=== PATIENT | male | born 1990 | race Caucasian/White ===

== ENCOUNTER → 2017-07-16 | Outpatient (CLI) | payer MEDICAID, OTHER | LOC: BMCIMAGING 13:53 | PROVIDERS: ATTEND Family Medicine | DX: S52.041A Displaced fracture of coronoid process of right ulna, initial encounter for closed fracture (principal); V00.321A Fall from snow-skis, initial encounter ==

== ENCOUNTER 2017-07-24 12:36 | Observation (INO) | payer MEDICAID ==
[2017-07-24] MEDS ORDERED: LIDOCAINE 1% 2 ML INJ ID PRN (13:01)
[2017-07-24] MEDS ORDERED: LR 1,000 ML IV ONE (13:01)
[2017-07-24] MEDS ORDERED: BUPIVACAINE 0.5% 30 ML SDV ONE (13:53)
[2017-07-24] MEDS ORDERED: ceFAZolin 2 GM/DEXTROSE 100 ML IV ONE (15:54)
--- NOTE | 2017-07-24 16:00 | PDANEPAE ---
ANE History of Present Illness 27 yo M w traumatic R UE fracture, here for ORIF ANE Past Medical History - Cardiovascular History Hx Hypertension: No Hx Arrhythmias: No Hx Chest Pain: No Hx Coronary Artery / Peripheral Vascular Disease: No Hx CHF / Valvular Disease: No Hx Palpitations: No - Pulmonary History Hx COPD: No Hx Asthma/Reactive Airway Disease: No Hx Recent Upper Respiratory Infection: No Hx Oxygen in Use at Home: No Hx Sleep Apnea: No Sleep Apnea Screening Result - Last Documented: Negative - Neurologic History Hx Cerebrovascular Accident: No Hx Seizures: No Hx Dementia: No - Endocrine History Hx Diabetes: No - Renal History Hx Renal Disorders: No - Liver History Hx Hepatic Disorders: No - Neurological & Psychiatric Hx Hx Neurological and Psychiatric Disorders: No - Cancer History Hx Cancer: No - Congenital Disorder History Hx Congenital Disorders: No - GI History Hx Gastrointestinal Disorders: No - Other Health History Other Health History: NEG - Chronic Pain History Chronic Pain: No - Surgical History Prior Surgeries: NONE ANE Review of Systems Review of Systems: - Exercise capacity Exercise capacity: >=4 METS METS (RN): 5 METS ANE Patient History - Allergies Allergies/Adverse Reactions: promethazine [From Phenergan] Allergy (Verified 07/24/17 13:15) Other-Enter Comments - Home Medications Home Medications: Misti Allergy 07/23/17 [Last Taken 07/22/17] HYDROcodone BITARTRATE 07/23/17 [Last Taken 07/23/17] - NPO status NPO Since - Liquids (Date): 07/24/17 NPO Since - Liquids (Time): 10:45 NPO Since - Solids (Date): 07/23/17 NPO Since - Solids (Time): 19:00 - Anes Hx Anes Hx: no prior problems - Smoking Hx Smoking Status: Never smoked - Alcohol Use Alcohol Use: Rarely - Family Anes Hx Family Anes Hx: none Family Hx Anesthesia Complications: NONE ANE Labs/Vital Signs - Vital Signs Blood Pressure: 133/93 Heart Rate: 70 Respiratory Rate: 16 O2 Sat (%): 97 Height: 182.88 cm Weight: 90.718 kg ANE Physical Exam - Airway Neck exam: FROM Mallampati Score: Class 2 Mouth exam: normal dental/mouth exam - Pulmonary Pulmonary: no respiratory distress, clear to auscultation - Cardiovascular Cardiovascular: regular rate and rhythym, no murmur, rub, or gallop - ASA Status ASA Status: II ANE Anesthesia Plan Anesthesia Plan: GA w LMA Regional Anesthesia: supraclavicular BP NB
[2017-07-24] MEDS ORDERED: MIDAZOLAM 2 MG/2 ML VIAL IVP ONE (16:03)
[2017-07-24] MEDS ORDERED: PROPOFOL 200 MG/20 ML VIAL ONE (16:13)
[2017-07-24] MEDS ORDERED: fentaNYL 100 MCG/2 ML INJ ONE (16:13)
[2017-07-24] MEDS ORDERED: LIDOCAINE 2% 100 MG/5 ML SYR ONE (16:14)
[2017-07-24] MEDS ORDERED: ceFAZolin 2 GM/SWFI 2 GM/20 ML SYR IVP ONE (16:30)
[2017-07-24] MEDS ORDERED: HYDROmorphONE/DILAUDID 2 MG/ML INJ ONE ×2 (17:14→20:35)
[2017-07-24] MEDS ORDERED: DEXAMETHASONE 4 MG/ML VIAL ONE (17:16)
[2017-07-24] MEDS ORDERED: ONDANSETRON 4 MG/2 ML VIAL ONE (17:17)
[2017-07-24] MEDS ORDERED: ROPIVACAINE HCL 150 MG/30 ML INJ ONE (17:53)
[2017-07-24] MEDS ORDERED: clonIDINE 1 MG/10 ML VIAL EP ONE (17:53)
[2017-07-24] MEDS ORDERED: ceFAZolin 1 GM VIAL ONE ×2 (20:17→23:59)
[2017-07-25] MEDS ORDERED: ONDANSETRON 4 MG/2 ML VIAL ONE (00:45)
[2017-07-25] MEDS ORDERED: ONDANSETRON DISINTEGRATING 4 MG TAB PO PRN (00:46)
[2017-07-25] MEDS ORDERED: ONDANSETRON 4 MG/2 ML VIAL IVP PRN ×2 (00:46)
[2017-07-25] MEDS ORDERED: DEXAMETHASONE 4 MG/ML VIAL IVP PRN (00:46)
[2017-07-25] MEDS ORDERED: HYDROmorphONE/DILAUDID 1 MG/ML INJ IVP PRN (00:46)
[2017-07-25] MEDS ORDERED: NALOXONE HCL 0.4 MG/ML INJ IVP PRN (00:46)
[2017-07-25] MEDS ORDERED: fentaNYL 100 MCG/2 ML INJ IVP PRN (00:46)
--- NOTE | 2017-07-25 00:49 | POSTANESTH ---
Post Anesthetic Evaluation Cardiovascular Status: Normal, Stable, Similar to Pre-Op Cond Respiratory Status: Normal, Stable, Similar to Pre-op Cond. Level of Consciousness/Mental Status: Can Participate in Eval, Alert and Oriented Pain Control: Adequate, Prn Tx Ordered (R BP NB (supraclav) performed in PACU, pt pain brought under control quickly.) Nausea/Vomiting Control: Adequate, Prn Tx Ordered Complications Possibly Related to Anesthesia: None Noted
[2017-07-25] MEDS: OXYCODONE/APAP 5/325 TAB PO PRN ×3 (03:51→07:32)
[2017-07-25] MEDS: HYDROmorphONE/DILAUDID 1 MG/ML INJ IVP PRN ×8 (03:52→21:09)
[2017-07-25] MEDS ORDERED: HYDROCODONE/APAP 5/325 TAB PO PRN (07:41)
[2017-07-25] MEDS ORDERED: KETOROLAC 15 MG/1 ML SDV ONE (07:41)
[2017-07-25] MEDS ORDERED: KETOROLAC 15 MG/1 ML SDV IVP ONE ×3 (07:45→12:00)
[2017-07-25] MEDS ORDERED: KETOROLAC 30 MG/1 ML SDV IVP PRN (11:38)
[2017-07-25] MEDS: HYDROCODONE/APAP 5/325 TAB PO PRN ×3 (12:05→21:09)
--- NOTE | 2017-07-25 12:09 | SOAPPROG ---
SOAP Progress Note Assessment/Plan: Assessment: Plan: Subjective: POD #1 s/p R elbow coronoid ORIF, LCL repair, placement of external fixator S: Pain was controlled until recently when block wore off. Has not responded to another dose of IV toradol and IV dilaudid O: Vitals stable R arm -dressing in place, no serosanguinous breakthrough -all fingers numb. Able to extend and flex thumb and digits, unable to abduct -hand, forearm and upper arm soft -2+ radial p. A/P: We had a long discussion about his surgery. His coronoid was essentially destroyed by the trauma, which necessitated the ex-fix to maintain a stable elbow. His prognosis is guarded due to the possibility of post-traumatic arthritis. Will reassess nerve recovery after block wears off. -Will increase IV toradol to 30 mg Q6 -Increasing PO norco to 2 tabs Q4hr -Increasing dilaudid to 0.8mg Q2hr IV -Will reassess the patient in the evening Objective: Vital Signs Temp Pulse Resp BP Pulse Ox 36.8 C 89 17 127/64 H 95 07/25/17 05:02 07/25/17 08:16 07/25/17 08:16 07/25/17 08:16 07/25/17 08:16 07/24/17 07/25/17 07/26/17 05:59 05:59 05:59 Intake Total 2100 1000 Balance 2100 1000 - Time Spent With Patient Time Spent With Patient: 30 min ICD10 Worksheet Patient Problems: Problems Problem Status Onset Closed fracture dislocation of elbow Acute - ICD10 Problem Qualifiers (1) Closed fracture dislocation of elbow
[2017-07-25 12:38] VITALS: RESP 16
[2017-07-25] MEDS: KETOROLAC 30 MG/1 ML SDV IVP SCH ×2 (17:58→23:04)
[2017-07-25 23:09] VITALS: TEMP 98.7
[2017-07-26] MEDS: HYDROmorphONE/DILAUDID 1 MG/ML INJ IVP PRN ×2 (00:04→11:56)
[2017-07-26] MEDS: HYDROCODONE/APAP 5/325 TAB PO PRN ×3 (02:02→12:36)
[2017-07-26] MEDS: KETOROLAC 30 MG/1 ML SDV IVP SCH ×2 (05:26→11:41)
[2017-07-26 05:32] LABS: PLATELET COUNT 234 10^3/uL (150-400)
[2017-07-26 07:36] VITALS: BP 127/84; PULSE 77; O2SAT 100
--- NOTE | 2017-07-26 08:54 | GOP ---
[f rep st] OPERATIVE REPORT DATE OF OPERATION: 07/25/2017 SURGEON: Naveed Joseph MD ANESTHESIA: General. PREOPERATIVE DIAGNOSIS: 1. Right elbow fracture dislocation, with type 3, severely comminuted. base of coronoid fracture. 2. Lateral collateral ligament avulsion. POSTOPERATIVE DIAGNOSIS: 1. Right elbow fracture dislocation, with type 3, severely comminuted base of coronoid fracture. 2. Lateral collateral ligament avulsion. PROCEDURE PERFORMED: 1. Right elbow open treatment of fracture dislocation with open reduction, infernal fixation of the coronoid process. 2. Open repair of lateral collateral ligament complex. 3. Anterior transposition of the ulnar nerve. 4. External fixation of the elbow. FINDINGS: ESTIMATED BLOOD LOSS: 100 cc. INDICATIONS: The patient is a 27-year-old male, who presented 1 week ago to Urgent Care after sustaining a fall while skiing locally. An x-ray done in the urgent care, at that time, was reviewed by me, which showed findings very concerning for a coronoid fracture with instability of the elbow. A CT scan was ordered for the subsequent injury. The patient returned to the clinic the following week with the CT scan. We discussed the treatment options for his elbow. On the preoperative examination, prior to my splinting of the elbow when he presented, distal neurovascularly intact. He had marked swelling in the elbow and into the hand, with pain with any movement of the elbow. We discussed the treatment options. I discussed with him the severe nature of his injury. The coronoid process, although 1 of the fragments was large, the coronoid itself was comminuted, so a lot of the bone was in the coronoid, crushed by the injury. There were several pieces including a coronoid tip fragment and a fragment attached to the sublime tubercle with the UCL. Discussed with him the possible complications intrinsic to his injury, which include stiffness, chronic pain, heterotopic ossification, posttraumatic arthritis. We also discussed the risks and benefits of surgery. Risks of surgery including bleeding, infection, damage to surrounding structures including nerves, nerve palsy, postoperative stiffness, heterotopic ossification , post-traumatic arthritis, need for further operations. He understood the risks and wished to proceed. DESCRIPTION OF PROCEDURE: The patient was seen in the preoperative holding area. Again, he and his father were given the opportunity to ask questions. All of their questions were answered. Consent was signed. Surgical site was marked. The patient was taken to the operative suite. Care was taken to transfer him from the [facility] to the operating room table. Care was taken to pad all jigar prominences. A time-out was called including surgical and anesthesia teams, confirming the surgical site and procedure to be performed. Two grams of IV Ancef were given prior to incision. The right upper extremity was prepped and draped in the usual sterile fashion. Tourniquet was placed on the arm and an Esmarch was used to exsanguinate the right upper extremity. We marked out a medial-type approach per the medial aspect of the elbow. This was a floor of the cubital tunnel FCU splitting approach. First, identified the ulnar nerve. Carefully, dissected out the ulnar nerve up to the 2 heads of the FCU. Carefully, we bluntly split the 2 heads of the FCU, identified 1 of the motor branches of the FCU from the median nerve. This was protected at all times. Part of the ulnar nerve was freed up, and a [place] was placed around it to protect it at all times. Subperiosteally, the anterior head of the FCU and then the rest of the flexor pronator mass were elevated off the coronoid fragment carefully and after elevating, we had first identified the fragment attached to the sublime tubercle. This was partially attached to the UCL. There were several fragments that were completely rotated 90 degrees of the bone and only buttressing the coronoid process. It was essentially crushed and there were many comminuted pieces of bone and this, in effect, were the only pieces of subchondral bone without a buttress. The affected site was exposed, irrigated. Bone chips and putty were then placed into the void distal to the coronoid where he had crushed the bone to create a buttress. A Synthes 3.5 small frag plate was bent to use as a buttress-type plate. This was placed over the bone graft to buttress the coronoid fragment in the joint, and 1 screw was then placed into the shaft to hold the plate down to the bone. Another screw was then placed into the sublime tubercle fragment and this had a good bite as well, and then a locking screw was placed to hold the plate. This was through the bone void. Prior to fixation, the fracture was provisionally reduced with K-wires. Again, reduction was tenuous, as these fragments were isolated fragments of subchondral bone and articular cartilage. After buttressing the coronoid, the K-wires were removed. The joint was run through a range of motion, and these small subchondral fragments were not stable and did not maintain reduction with the buttress by nature of their size and comminuted character. The sublime tubercle fragment remained stable. At this point, an attempt was made to place a cannulated 3.5 Synthes screw from posterior to anterior into the fragment. The screw was placed and it provided some buttress support; however, the fragment again remained unstable. To gain a better angle to the coronoid, a flexor pronator split was made, giving a better [id number] angle. A Synthes 2.7 titanium screw was then placed into the fragment from anterior to posterior. This did not have any bite and did not aid in the reduction into the tip. Thus, this screw was removed and abandoned. At this point, it was clear that the intra-articular fragment and to the comminuted nature of the injury, could not stabilize the screws, and a K-wire was placed from anterior to posterior into the tip fragment to stabilize the tip fragment, and then several K-wires were placed from posterior to anterior into the coronoid fragments to provide some buttress support. After this was done, with the loose subchondral pieces removed and took out any loose bodies from the joint, and then some bone putty and DBM matrix were placed into the bone voids to allow for healing. After this was done, the joint was run through a range of motion. The joint did not appear stable. With any varus stress, there was complete gapping of the lateral side of the elbow. Of note, during the procedure, the ulnar nerve was protected with a Chinmay drain during exposure of the fracture. At this point, decision was made to then approach the lateral side. A curved incision over the LCL was made. Upon entering the superficial fascia, there was a complete rent in the intra musculature, and the LCL was visualized and completely pulled off at the epicondyle. There was a bald epicondyle, and this was cleaned up. The LCL and the extensor musculature attached to it were then secured with a #2 FiberWire. Arthrex 3.0 Bio SutureTaks were then placed into the LCL origin and the sutures in the LCL ligament, and then the anchors were then tied to each other. The remaining sutures in the double-loaded anchor were then run from proximal to distal to close the rent in the extensor muscle and to also capture the LCL for reinforcement. Doing so, stabilized the elbow somewhat. In full supination, the elbow was stable through a full range of motion; however, in pronation, the elbow was noted to gap medially, as the elbow was not fully stable after repairing both medial and lateral sides, and the decision was made to place an external fixator. Prior to this, an external fixator of the medial and lateral incisions were closed. In the medial incision, the decision was made to perform an anterior transposition of the ulnar nerve to release tension off it and then move it away from the repair site. The ulnar nerve was carefully dissected out, and then a strip of flexor pronator mass fascia was then elevated , and this was used to perform a subcutaneous transposition. The fascia was then sewn to the subcutaneous tissue. Prior to doing so, the elbow was carefully irrigated. During this case, the antibiotics were re-dosed twice as well as IV Ancef. Next, the medial capsule was closed. The skin was closed in layers with 2-0 Monocryl and then a 3-0 nylon. The lateral side was closed with 2-0 Monocryl and 3-0 nylon. After closing the lateral side, the Synthes large hinged ex-fix was placed in a standard fashion. The first two humerus pins were placed. These were done with generous incisions to prevent any damage to the radial nerve. This was spread down to the bone and the bone was palpated on all sides, and without any other intervening structures. The drill guide was placed down to the bone to protect injuring during drilling, and then the ex-fix pins were placed, 2 in the humerus were done in this fashion and then 2 were placed in the subcutaneous part of the ulna, and 2 bars were then placed onto these 2 pins. A wire was then placed into the center of rotation of the elbow which was confirmed under fluoroscopy. The hinge was constructed over it, and attached this to the 2 humeral and ulnar bars. After this was done , removed the center pin. The elbow was run through a range of motion under live fluoroscopy, and the elbow had full stable range of motion with full flexion and extension in the ex-fix under live fluoroscopy. Although, due to the nature of the injury, decision was made to lock the ex-fix at about slightly less than 90 degrees of flexion to allow for healing of that comminuted coronoid. The bar was placed to lock the fixator, which will be removed at a later date in the office. The pin sites were irrigated and closed with 4-0 nylon. Final x-rays were taken to confirm maintained reduction of the joint. At the end of the case, the hand was very well perfused with a strong radial pulse. A sterile dressing was applied. He was awakened from general anesthesia in stable condition, and then taken to the PACU in stable condition. Decision was made to perform postop block for pain control. After the block, the patient had intact arm extension and flexion, intact finger extension and flexion. He did not, however, have clear abduction and adduction of his fingers. This may possibly be a consequence of the prolonged nature of the case and retraction of the nerve and medial exposure. After block was done, decision was made to admit the patient for pain control and postop monitoring. POSTOPERATIVE CONDITION: Stable. POSTOPERATIVE PLAN: Patient will be admitted for pain control. When his pain is controlled on p.o. pain medications, he will be discharged home. He will follow up in the office early next week for dressing change, and he will receive instructions on pin site care. Decision will be made to remove the ex- fix to allow range of motion with supervised therapy. I discussed with the patient the severe nature of his injury and the high likelihood of post- traumatic arthritis with the severe damage to the articular cartilage and the buttressing bone that occurred during this accident. The patient has a guarded prognosis with this severe elbow injury. /[id number]/MODL MTDD
--- NOTE | 2017-07-26 16:33 | ASDISCHSUM ---
Discharge Information Plan Status:Home with No Needs Medically Cleared to Leave:07/25/2017 Discharge Date:07/26/2017 01:04 PM D/C Disposition: ADT D/C Disposition:Home, Routine, Self-Care Projected Discharge Date:07/26/2017 12:00 AM Transportation at D/C: Discharge Delay Reason: Follow-Up Date:07/26/2017 12:00 AM Discharge Slot: Final Diagnosis: Placement Information Patient Contact Information Contact Name:GINNY Relationship:Father Address: City: [facility] Phone: State/Zip Code: Email: Financial Information Financial Class: Primary Plan Desc:[employer] Primary Plan Number:[id number] Secondary Plan Desc: Secondary Plan Number: Assessment Information Intervention Information
--- NOTE | 2017-07-27 15:04 | GDS ---
[f rep st] DISCHARGE SUMMARY ADMITTING DIAGNOSIS: Status post right elbow coronoid open reduction, internal fixation, open repair of lateral collateral ligament, ulnar nerve transposition , elbow application of uniplanar hinged external fixator. HOSPITAL COURSE: Please see operative dictation for details of the surgery. The patient was admitted postoperatively for pain control. A brachial plexus block was done in preop for pain control. He was admitted and placed on Percocet , IV Dilaudid, and Toradol for pain ctrl. On the morning of July 25, his pain initially had been well controlled but however, when the block began wearing off he again was experiencing pain in the elbow. His IV Toradol was increased to 30 mg q.6. We changed over from Percocet, which was giving him nausea, to [place] 5's, two tabs, and IV Dilaudid for breakthrough. See the progress note for July 25 for details of that visit. On the morning of July 26, I called in to assess his pain control. Per the nursing staff he had been doing better. Later morning when seen, the patient's pain was being controlled with p.o. [place] and IV Toradol. The neurovascular exam for his hand had improved on this day. He had very good wrist and finger extension and EPL was intact, FPL was intact, and finger flexors were intact. He was still experiencing some tingling in all his digits. He was able to abduct and adduct his fingers, indicating early recovery of the ulnar nerve. All his compartments were soft and the hand swelling had been improving. His dressing was changed. Both of the incision sites were clean, dry. The pin sites were clean with the usual serosanguineous pin site drainage. Sterile dressing was applied. He was taught site care. He had 2+ radial pulse. At this point I spoke at length with the patient and his father about the diagnosis of his elbow, the severity of the articular injury. There is a high likelihood of posttraumatic arthritis and elbow dysfunction. On this day, the patient and his father both requested to be discharged home. He was given prescriptions for Toradol and Percocet, instructed to use [id number] antacids for abdominal discomfort. He is to wear his sling for comfort. Encouraged him to move his fingers and slight rotation of his arm. His labs were checked on this day, he had a stable hemoglobin, and was discharged home. He will be seen in the clinic in 3 days. /[id number]/MODL MTDD
== END 2017-07-26 13:04 | disposition home or self-care (01) ==
LOC: FSGY 12:36 → F3N 07-25 00:54
PROVIDERS: ADMIT Orthopaedic Surgery Hand Surgery; ATTEND Orthopaedic Surgery Hand Surgery
PROC: 0MQ90ZZ Repair Right Upper Extremity Bursa and Ligament, Open Approach (ICD-10-PCS; principal; 2017-07-25)
PROC: 0PSF04Z Reposition Right Humeral Shaft with Internal Fixation Device, Open Approach (ICD-10-PCS; principal; 2017-07-25)
DX: S53.441A Ulnar collateral ligament sprain of right elbow, initial encounter (principal); S42.491A Other displaced fracture of lower end of right humerus, initial encounter for closed fracture
CPT/HCPCS: 24343; 24579; 76001; G0378; C1713; C1762; J0690; J0735; J1100; J1170; J1885; J2001; J2250; J2405; J2704; J2795; J3010

== ENCOUNTER → 2017-07-29 | Outpatient (CLI) | payer MEDICAID | LOC: BMCIMAGING 14:23 | PROVIDERS: ATTEND Orthopaedic Surgery Hand Surgery | DX: S52.201D Unspecified fracture of shaft of right ulna, subsequent encounter for closed fracture with routine healing (principal) ==

== ENCOUNTER → 2017-08-11 | Outpatient (CLI) | payer MEDICAID | LOC: BMCIMAGING 12:35 | PROVIDERS: ATTEND Orthopaedic Surgery Hand Surgery | DX: M25.531 Pain in right wrist (principal); S52.041D Displaced fracture of coronoid process of right ulna, subsequent encounter for closed fracture with routine healing ==

== ENCOUNTER → 2017-08-13 | Outpatient (CLI) | payer MEDICAID | LOC: BMCIMAGING 15:32 | PROVIDERS: ATTEND Orthopaedic Surgery Hand Surgery | DX: S52.041D Displaced fracture of coronoid process of right ulna, subsequent encounter for closed fracture with routine healing (principal) ==

== ENCOUNTER → 2017-08-25 | Outpatient (CLI) | payer MEDICAID | LOC: BMCIMAGING 13:17 | PROVIDERS: ATTEND Orthopaedic Surgery Hand Surgery | DX: S52.041D Displaced fracture of coronoid process of right ulna, subsequent encounter for closed fracture with routine healing (principal) ==

== ENCOUNTER → 2017-09-25 | Outpatient (CLI) | payer MEDICAID | LOC: BMCIMAGING 10:27 | PROVIDERS: ATTEND Orthopaedic Surgery Hand Surgery | DX: S82.041A Displaced comminuted fracture of right patella, initial encounter for closed fracture (principal); X58.XXXA Exposure to other specified factors, initial encounter ==

== ENCOUNTER → 2017-11-04 | Outpatient (CLI) | payer MEDICAID, OTHER | LOC: BMCIMAGING 16:08 | PROVIDERS: ATTEND Orthopaedic Surgery Hand Surgery | DX: S52.001D Unspecified fracture of upper end of right ulna, subsequent encounter for closed fracture with routine healing (principal) ==